=== PATIENT | male | born 1985 | race Caucasian/White ===

== ENCOUNTER 2019-09-26 05:10 | Emergency (ER) | payer SELFPAY ==
[~2019-09-26] VITALS: Ht 180.3 cm; Wt 85.0 kg
[2019-09-26 05:23] VITALS: Ht 180.3 cm; Wt 85.0 kg
[2019-09-26] MEDS ORDERED: KEPPRA250 MG PO (05:25)
[2019-09-26] MEDS ORDERED: LISINOPRIL10 MG (05:25)
[2019-09-26 06:16] LABS: CALC OSMOLALITY 284 mosm/kg (275-300); CARBON DIOXIDE 24.5 mmol/L (21.0-32.0); CHLORIDE - SERUM 104 mmol/L (98-107); CREATININE - SERUM 0.9 mg/dL (0.6-1.3); GLUCOSE 145 mg/dL (74-106); POTASSIUM - SERUM 3.8 mmol/L (3.5-5.1); SODIUM 141 mmol/L (136-145); UREA NITROGEN 16 mg/dL (7-18); eGFR NON AFRICAN AMERICAN > 90 mL/min (90-120)
[2019-09-26 06:22] LABS: ALBUMIN 3.8 g/dL (3.4-5.0); ALKALINE PHOSPHATASE 104 U/L (46-116); ALT (SGPT) 28 U/L (10-68); BILIRUBIN - TOTAL 0.79 mg/dL (0.2-1.3); PROTEIN - SERUM 7.5 g/dL (6.4-8.2)
[2019-09-26 06:29] LABS: BASOPHILS 0.4 % (0-2); EOSINOPHILS 1.1 % (0-7); HEMATOCRIT 45.9 % (42.0-54.0); HEMOGLOBIN 15.7 g/dL (13.5-17.5); IMMATURE GRANULOCYTES 0.4 % (0-5); LYMPHOCYTES 13.1 % (15-50); MCH 31.3 pg (26.0-34.0); MCHC 34.2 g/dL (31.0-37.0); MCV 91.6 fL (80.0-100.0); MEAN PLATELET VOLUME 9.9 fL (7.4-10.4); MONOCYTES 6.5 % (2-11); NEUTROPHILS 78.5 % (40-80); PLATELET COUNT 181 10x3/uL (130-400); RBC 5.01 10x6/uL (4.20-6.10); RDW 13.2 % (11.5-14.5); WBC 7.4 10x3/uL (4.8-10.8)
[2019-09-26] MEDS ORDERED: LISINOPRIL10 MG PO (06:55)
[2019-09-26] MEDS ORDERED: KEPPRA500 MG PO (06:55)
[2019-09-26] MEDS ORDERED: ULTRAM50 MG PO (07:09)
[2019-09-26 09:11] VITALS: BP 132/78
== END 2019-09-26 09:12 | disposition home or self-care (01) ==
LOC: D.ER 05:10
PROVIDERS: Emergency Medicine
DX: F10.129 Alcohol abuse with intoxication, unspecified (principal); G40.89 Other seizures; I10 Essential (primary) hypertension; Z72.0 Tobacco use

== ENCOUNTER 2020-01-18 23:15 | Emergency (ER) | payer SELFPAY ==
[~2020-01-18] VITALS: Ht 180.3 cm; Wt 81.8 kg
[~2020-01-18 23:15] MED LIST: KEPPRA250 MG PO; KEPPRA500 MG PO; LISINOPRIL10 MG; LISINOPRIL10 MG PO; ULTRAM50 MG PO
[2020-01-18 23:18] VITALS: Ht 180.3 cm; Wt 81.8 kg
[2020-01-18 23:36] LABS: HEMATOCRIT 46.4 % (42.0-54.0); MCHC 34.5 g/dL (31.0-37.0); MCV 92.8 fL (80.0-100.0); MEAN PLATELET VOLUME 9.3 fL (7.4-10.4); NEUTROPHILS 56.9 % (40-80); PLATELET COUNT 184 10x3/uL (130-400); RDW 13.1 % (11.5-14.5); WBC 7.8 10x3/uL (4.8-10.8)
[2020-01-18 23:45] LABS: CALC OSMOLALITY 277 mosm/kg (275-300); CALCIUM 8.5 mg/dL (8.5-10.1); CHLORIDE - SERUM 102 mmol/L (98-107); CREATININE - SERUM 0.9 mg/dL (0.6-1.3); GLUCOSE 121 mg/dL (74-106); POTASSIUM - SERUM 3.7 mmol/L (3.5-5.1); SODIUM 138 mmol/L (136-145); UREA NITROGEN 14 mg/dL (7-18); eGFR NON AFRICAN AMERICAN > 90 mL/min (90-120)
[2020-01-18 23:51] LABS: ALBUMIN 3.8 g/dL (3.4-5.0); ALKALINE PHOSPHATASE 96 U/L (30-120); ALT (SGPT) 21 U/L (10-68); BILIRUBIN - TOTAL 0.68 mg/dL (0.2-1.3); PROTEIN - SERUM 7.3 g/dL (6.4-8.2)
[2020-01-19] MEDS ORDERED: LIBRIUM25 MG PO (00:34)
[2020-01-19 04:15] VITALS: BP 125/64
== END 2020-01-19 04:21 | disposition home or self-care (01) ==
LOC: D.ER 23:15
PROVIDERS: Emergency Medicine
DX: F10.239 Alcohol dependence with withdrawal, unspecified (principal); F10.229 Alcohol dependence with intoxication, unspecified; Y90.7 Blood alcohol level of 200-239 mg/100 ml; I10 Essential (primary) hypertension; Z72.0 Tobacco use; G40.409 Other generalized epilepsy and epileptic syndromes, not intractable, without status epilepticus